=== PATIENT | male | born 1970 | race African-American/Black ===

== ENCOUNTER 2019-04-28 01:27 | Emergency (ER) | payer OTHER ==
[2019-04-28 01:37] VITALS: BP 118/78; PULSE 77; RESP 16; TEMP 98.8
[2019-04-28] MEDS ORDERED: LIDOCAINE 1% INJ 10MG/ML (20 ML MDV) SQ ONE (02:02)
[2019-04-28] MEDS ORDERED: CEPHALEXIN 500MG STARTER PACK 4 CAP BTL PO STA (02:47)
--- NOTE | 2019-04-28 02:49 | ED ---
Skin/Abscess/FB HPI - General Chief complaint: Skin/Abscess/Foreign Body Stated complaint: Fishing hook in thumb Time Seen by Provider: 04/28/19 02:02 Source: patient, RN notes reviewed, old records reviewed Mode of arrival: ambulatory Limitations: no limitations - History of Present Illness Initial comments: Patient is a pleasant 49-year-old male presents emergency department today complaining of a fishhook stuck in his right thumb. Patient reports that this occurred approximately 1 hour prior to arrival. Patient states that he has no other complaints. His tetanus shot is up-to-date. - Related Data Previous Rx's Medication Instructions Recorded Cephalexin [Keflex] 500 mg PO Q6HR #20 cap 04/28/19 Allergies Allergy/AdvReac Type Severity Reaction Status Date / Time No Known Allergies Allergy Verified 04/28/19 01:37 Review of Systems ROS Statement: Those systems with pertinent positive or pertinent negative responses have been documented in the HPI. ROS Other: All systems not noted in ROS Statement are negative. Past Medical History Past Medical History: Diabetes Mellitus History of Any Multi-Drug Resistant Organisms: None Reported Past Surgical History: No Surgical Hx Reported Past Psychological History: No Psychological Hx Reported Smoking Status: Former smoker Past Alcohol Use History: None Reported Past Drug Use History: None Reported General Exam - General Exam Comments Initial Comments: Alert and oriented 49-year-old male. No distress. General: Well appearing, well nourished, in no distress. Oriented x 3, normal mood and affect . Ambulating without difficulty. Skin: Good turgor, no rash, unusual bruising or prominent lesions Hair: Normal texture and distribution. Neck: Supple, without lesions, bruits, or adenopathy, thyroid non-enlarged and non-tender Heart: No cardiomegaly or thrills; regular rate and rhythm, no murmur or gallop Lungs: Clear to auscultation and percussion Abdomen: Bowel sounds normal, no tenderness, organomegaly, masses, or hernia Extremities: No amputations or deformities, vision has a fishhook within the pad of the right thumb. Full range of motion noted. No nail involvement. Musculoskeletal: Normal gait and station. No misalignment, asymmetry, crepitation, defects, tenderness, masses, effusions, decreased range of motion, instability, atrophy or abnormal strength or tone in the head, neck, spine, ribs, pelvis or extremities. Neurologic: CN 2-12 normal. Sensation to pain, touch, and proprioception normal. DTRs normal in upper and lower extremities. No pathologic reflexes. Psychiatric: Oriented X3, intact recent and remote memory, judgment and insight, normal mood and affect. Limitations: no limitations Course Vital Signs 04/28/19 01:33 Temperature 98.8 F Pulse Rate 77 Respiratory 16 Rate Blood Pressure 118/78 O2 Sat by Pulse 94 L Oximetry Procedures - Procedures Initial comment: Patient is a 49-year-old male who had the fishhook removed from the right thumb. Patient's thumb was cleaned with iodine. Apparently 2 mL was used to anesthetize the finger using a nerve block. Patient had the fishhook removed with a through and through method. I pushed the Patient through the risks of the pad of the finger and cut off the yazan and. Then the remaining part of the fishhook was backed out through the initial holes placed. Patient is neurovascular intact. After the procedure was completed Patient soak hand in water in iodine solution. Bleeding is well-controlled. Medical Decision Making - Medical Decision Making Patient is a 49-year-old male present with the fishhook within the right thumb. Discussed with the pad of the thumb. Full range of motion noted. Patient's fishhook was removed easily with a through and through method. Patient tolerated the procedure well. We'll put the Patient on antibiotics at this time. His tetanus is up-to-date. Discussed monitoring for any signs of infection including redness swelling or drainage. Disposition Clinical Impression: Fish hook injury of finger Disposition: HOME SELF-CARE Condition: Good Instructions (If sedation given, give patient instructions): Puncture Wound (ED) Additional Instructions: Patient should do frequent soaks of the thumb. She would 2-3 times a day. Monitor for any signs of infection including redness swelling or drainage. Patient should take the antibiotics as prescribed. Prescriptions: Cephalexin [Keflex] 500 mg PO Q6HR #20 cap Is patient prescribed a controlled substance at d/c from ED?: No Referrals: Sabino Cooper MD [Primary Care Provider] - 1-2 days Time of Disposition: 02:48
== END 2019-04-28 03:07 | disposition home or self-care (01) ==
LOC: EC 01:27
DX: S60.351A Superficial foreign body of right thumb, initial encounter (principal); Z87.891 Personal history of nicotine dependence; W45.8XXA Other foreign body or object entering through skin, initial encounter
CPT/HCPCS: 99283; 10120; J2001